=== PATIENT | female | born 1950 | race Two or more races ===

== ENCOUNTER 2024-05-15 05:28 | Day surgery (SDC) | payer OTHER ==
[2024-05-09 10:20] LABS: HEMATOCRIT 41.4 % (36.0-45.00); HEMOGLOBIN 13.9 g/dL (12.0-15.00); MEAN CELL VOLUME 87.8 fL (80.00-100.00); MEAN CORPUSCULAR HEMOGLOBIN 29.5 pg (27.00-32.0); MEAN CORPUSCULAR HGB CONC 33.6 g/dl (32.0-36.0); PLATELET COUNT 247 K/uL (150-450); RED BLOOD COUNT 4.72 M/uL (4.00-6.00)
[2024-05-09 10:33] LABS: URINE APPEARANCE Clear; URINE BILIRRUBIN Negative (NEGATIVE); URINE BLOOD Negative; URINE COLOR Yellow; URINE GLUCOSE Negative (NEGATIVE); URINE KETONE Negative (NEGATIVE); URINE LEUKOCYTE Negative; URINE NITRATE Negative; URINE PROTEIN Negative (NEGATIVE); URINE UROBILINOGEN 0.2 E.U./dl
[2024-05-09 10:34] LABS: URINE BACTERIA 949.9 uL (0.0-1933); URINE EPITHELIAL CELLS 6.1 uL (0.0-38.8); URINE RBC 4.7 uL (0.0-20.8); URINE WBC 6.9 uL (0.0-23.2)
[2024-05-09 10:42] LABS: URINE CAST 0.15 uL (0.0-1.40)
[2024-05-09 10:48] LABS: INR 1.03; PROTHROMBIN TIME 11.2 SECONDS (9.0-11.5)
[2024-05-09 11:26] LABS: ALBUMIN 3.5 gm/dL (3.4-5.0); BILIRUBIN TOTAL 0.81 mg/dL (0.3-1.2); CALCIUM 9.2 mg/dL (8.5-10.1); CREATININE SERUM 0.73 mg/dL (0.55-1.02); GFR 78.15; GLOBULINA 4.3 G/DL (2.4-3.5); POTASSIUM 3.97 mEq/L (3.5-5.1); TOTAL PROTEIN 7.8 gm/dL (6.4-8.2)
[~2024-05-15 05:28] MED LIST: AMBIEN10 MG; ANTIVERT25 M2; AVALIDE 300-121 EACH; NEUROTIN; NORVASC5 MG; SYNTHROID100 MCG; XANAX1 MG; ZOCOR20 MG; ZOLOFT50 MG; ZYRTEC10 MG
[2024-05-15] MEDS ORDERED: EPINEPHRINE HCL/PF 1 MG/ML AMPUL IV ONE (14:45)
[2024-05-15] MEDS ORDERED: DEXAMETHASONE SODIUM PHOSPHATE 4 MG/ML VIAL IV ONE (14:45)
[2024-05-15] MEDS ORDERED: CLINDAMYCIN PHOSPHATE 150 MG/ML (900mg) IV ONE (14:45)
[2024-05-15] MEDS ORDERED: CHLORHEXIDINE GLUCONATE 120 ML BOTTLE TOP ONE (14:45)
[2024-05-15] MEDS ORDERED: OXYMETAZOLINE HCL 15 ML NASAL DROPS NASAL ONE (14:45)
== END 2024-05-15 19:30 | disposition home or self-care (01) ==
LOC: CIR.AMB 05:28
PROVIDERS: ATTEND Otolaryngology
DX: D11.0 Benign neoplasm of parotid gland (principal); Z88.0 Allergy status to penicillin